=== PATIENT | female | born 1975 | race Two or more races ===

== ENCOUNTER 2025-04-18 11:41 | Emergency (ER) | payer SELFPAY ==
[~2025-04-18] VITALS: Ht 162.6 cm; Wt 84.0 kg
--- NOTE | 2025-04-18 12:03 | ED.PDOC ---
History of Present Illness HPI Comments 49 year old female with PMHx of Adrenal insufficiency presents to the ED via EMS with a chief complaint of abdominal pain onset today. Patient states she has Adrenal insufficiency, is with Be, is being followed by Human Resources Safety Manager. Spouse states patient has been seen at [facility] about 4 times for similar symptoms, has not been treated. Patient is currently experiencing abdominal pain, generalized weakness, shortness of breath, lightheadedness. Upon ED arrival BP was 166/94. Patient has been taking Steroids for the past 4 days, was late on her dose today. Denies chest pain, nausea, vomiting, diarrhea, numbness/tingling, fever, chills. No other symptoms or modifying factors present at this time. Chief Complaint: Abdominal Pain Time Seen by MD: 12:00 Reviewed Notes: Medications, Allergies Allergies: Coded Allergies: Cefuroxime (Verified Allergy, Unknown, 04/18/25) Ciprofloxacin (Verified Allergy, Unknown, 04/18/25) Hydrocortisone (Verified Allergy, Unknown, 04/18/25) Metronidazole (Verified Allergy, Unknown, 04/18/25) Miconazole (Verified Allergy, Unknown, 04/18/25) Promethazine (Verified Allergy, Unknown, 04/18/25) Sulfamethoxazole w/Trimethoprim (Verified Allergy, Unknown, 04/18/25) Information Source: Patient, Emergency Med Personnel, Spouse Mode of Arrival: EMS Severity: Moderate Timing: Hours Duration: Since onset Prehospital treatment: None Past Medical History Past Medical History (Other): Adrenal insufficiency Surgical History: Denies all surgeries BUSINESS TRANSFORMATION MANAGER History: No Pertinent BUSINESS TRANSFORMATION MANAGER History Family History Family History: Reviewed,noncontributory to illness, No family hx of Cancer, No family hx of DM, No family hx of Heart kye, No family hx of HTN, No family hx ofKidney kye, No family hx of Liver kye, No family hx of Lung kye, No family hx of Stroke Social History Smoker: Non-Smoker Alcohol: Denies ETOH Use Drugs: Denies Drug Use Lives In: Home Constitutional: reports: weakness; denies: chills, diaphoresis, fatigue, fever, malaise, sweats, others EENTM: denies: blurred vision, double vision, ear bleeding, ear discharge, ear drainage, ear pain, ear ringing, eye pain, eye redness, hearing loss, mouth pain, mouth swelling, nasal discharge, nose bleeding, nose congestion, nose pain, photophobia, tearing, throat pain, throat swelling, voice changes, others Respiratory: denies: cough, hemoptysis, orthopnea, SOB at rest, shortness of breath, SOB with excertion, stridor, wheezing, others Cardiovascular: denies: chest pain, dizzy spells, diaphoresis, Dyspnea on exertion, edema, irregular heart beat, left arm pain, lightheadedness, palpitations, PND, syncope, others Gastrointestinal: reports: abdominal pain; denies: abdomen distended, blood streaked bowels, constipated, diarrhea, dysphagia, difficulty swallowing, hemat emesis, melena, nausea, poor appetite, poor fluid intake, rectal bleeding, rectal pain, vomiting, others Genitourinary: denies: abnormal vagina bleeding, burning, dyspareunia, dysuria, flank pain, frequency, hematuria, incontinence, pain, , vagina discharge, urgency, others Neurological: reports: weakness; denies: dizziness, fainting, headache, left sided numbness, left sided weakness, numbness, paresthesia, pre-existing deficit, right sided numbness, right sided weakness, seizure, speech problems, tingling, tremors, others Musculoskeletal: denies: back pain, gout, joint pain, joint swelling, muscle pain, muscle stiffness, neck pain, others Integumetry: denies: bruises, change in color, change in hair/nails, dryness, laceration, lesions, lumps, rash, wounds, others Allergic/Immunocompromised: denies: Difficulty Healing, Frequent Infections, Hives, Itching, others Hematologic/Lymphatic: denies: anemia, blood clots, easy bleeding, easy bruising, swollen glands, others Endocrine: denies: excessive hunger, excessive sweating, excessive thirst, excessive urination, flushing, intolerance to cold, intolerance to heat, unexplained weight gain, unexplained weight loss, others Psychiatric: denies: anxiety, bipolar disorder, depression, hopeless, panic disorder, schizophrenia, sleepless, suicidal, others All Other Systems: Reviewed and Negative Physical Exam General Appearance: Moderate Distress, Normal HEENT: Normal ENT Inspection, Pharynx Normal, TMs Normal Neck: Full Range of Motion, Non-Tender, Normal, Normal Inspection Respiratory: Chest Non-Tender, Lungs Clear, No Accessory Muscle Use, No Respiratory Distress, Normal Breath Sounds Cardiovascular: No Edema, No JVD, No Murmur, No Gallop, Normal Peripheral Pulses, Regular Rate/Rhythm Breast Exam: Deferred Gastrointestinal: No Organomegaly, Non Tender, No Pulsatile Mass, Normal Bowel Sounds, Soft Genitalia: Deferred Pelvic: Deferred Rectal: Deferred Extremities: No calf tenderness, Normal capillary refill, Normal inspection, Normal range of motion, Non-tender, No pedal edema Musculoskeletal : Apperance: Normal Neurologic: Alert, director hospice operations II-XII nml as Tested, No Motor Deficits, Normal Affect, Normal Mood, No Sensory Deficits Cerebellar Function: NOT DONE Reflexes: NOT DONE Skin: Dry, Normal Color, Warm Peripheral Pulses: 3+ Radial (R), 3+ Radial (L) Lymphatic: No Adenopathy Was a procedure done? Was a procedure done?: No Differential Dx Considerations may include: Anemia Electrolyte imbalance X-Ray, Labs, Meds, VS Vital Signs Date Time Temp Pulse Resp B/P (MAP) Pulse Ox O2 Delivery O2 Flow Rate FiO2 04/18/25 13:15 98.8 88 20 146/82 (103) 98 98.8 04/18/25 11:41 97.7 96 20 166/94 97 97.7 Lab Test 04/18/25 12:28 04/18/25 12:00 Range/Units White Blood Count 8.5 4.4-10.8 10^3/uL Red Blood Count 5.46 H 4.0-5.20 10^6/uL Hemoglobin 15.7 12.2-16.2 g/dL Hematocrit 48.1 H 36.0-46.0 % Mean Corpuscular Volume 88.0 80.0-100.0 fL Mean Corpuscular Hemoglobin 28.6 28.0-32.0 pg Mean Corpuscular Hemoglobin Concent 32.5 32.0-36.0 g/dL Red Cell Distribution Width 14.9 H 11.8-14.3 % Platelet Count 317 140-450 10^3/uL Mean Platelet Volume 6.9 6.9-10.8 fL Neutrophils (%) (Auto) 64.5 37.0-80.0 % Lymphocytes (%) (Auto) 26.9 10.0-50.0 % Monocytes (%) (Auto) 6.8 0.0-12.0 % Eosinophils (%) (Auto) 1.3 0.0-7.0 % Basophils (%) (Auto) 0.5 0.0-2.0 % Neutrophils # (Auto) 5.5 1.6-8.6 10 ^3/uL Lymphocytes # (Auto) 2.3 0.4-5.4 10 ^3/uL Monocytes # (Auto) 0.6 0-1.3 10 ^3/uL Eosinophils # (Auto) 0.1 0-0.8 10 ^3/uL Basophils # (Auto) 0 0-0.2 10 ^3/uL Nucleated Red Blood Cells 0.0 % Sodium Level 141 136-145 mmol/L Potassium Level 3.3 L 3.5-5.1 mmol/L Chloride Level 101 98-107 mmol/L Carbon Dioxide Level 28 20-31 mmol/L Anion Gap 12 5-15 Blood Urea Nitrogen 11 9-23 mg/dL Creatinine 1.02 0.550-1.02 mg/dL Glomerular Filtration Rate Calc 68 >90 mL/min BUN/Creatinine Ratio 10.8 10.0-20.0 Serum Glucose 167 H 74-106 mg/dL Calcium Level 9.3 8.7-10.4 mg/dL Urine Color Colorless Yellow Urine Clarity Clear Clear Urine pH 6.5 5.0-9.0 Urine Specific [place] 1.009 1.001-1.035 Urine Protein Negative Negative Urine Ketones Negative Negative Urine Blood Negative Negative /uL Urine Nitrite Negative Negative Urine Bilirubin Negative Negative Urine Urobilinogen Normal Negative mg/dL Urine Leukocyte Esterase Negative Negative /uL Urine RBC <1 0 - 4 /hpf Urine Microscopic WBC < 1 0-5 /HPF Urine Squamous Epithelial Cells Few <5 /hpf Urine Bacteria Few H None Seen /hpf Urine Glucose 1+ H Normal mg/dL Current Medications Medications (Trade) Dose Ordered Sig/Lesly Route Start Time Stop Time Status Last Admin Sodium Chloride 1,000 ml @ 1,000 mls/hr Q1H ONCE IVB 04/18/25 12:15 04/18/25 13:14 DC 04/18/25 13:12 Patient alert. Complaining of generalized body aches. Vitals stable. Answering questions. Blood sugar elevated. Establish intravenous access. Was given fluids. WBC within normal limits. Transferred for higher level of care. Explained to the patient. Time of 1ST Reevaluation: 12:30 Reevaluation 1ST: Unchanged Patient Education/Counseling: Diagnosis, Treatment, Prognosis Family Education/Counseling: Diagnosis, Treatment, Prognosis SEPSIS Sepsis Screen Vital Signs Date Time Temp Pulse Resp B/P (MAP) Pulse Ox O2 Delivery O2 Flow Rate FiO2 04/18/25 13:15 98.8 88 20 146/82 (103) 98 98.8 04/18/25 11:41 97.7 96 20 166/94 97 97.7 Laboratory Tests Test 04/18/25 12:28 White Blood Count 8.5 10^3/uL (4.4-10.8) Medications Medications Dose Ordered Sig/Lesly Route Start Time Stop Time Status Last Admin Dose Admin Sodium Chloride 1,000 ml @ 1,000 mls/hr Q1H ONCE IVB 04/18/25 12:15 04/18/25 13:14 DC 04/18/25 13:12 Departure 1 Departure Time of Disposition: 13:57 Impression: Primary Impression: Adrenal insufficiency Disposition: 02 SHORT TERM HOSPITAL Admit to: Med Surg Condition: Guarded Critical Care Note Critical Care Time?: Yes (90 min-critical care time only) Stability Stability form required: No Heart Score Heart Score: Heart Score Response (Comments) Value History N/A 0 EKG N/A 0 Age N/A 0 Risk Factors N/A 0 Troponin N/A 0 Total 0 I personally scribed for JUAN M PATTEN MD ([email or web address]) on 04/18/25 at 12:03. Electronically submitted by Loly Ireland ([email or web address]). I personally scribed for JUAN M PATTEN MD ([email or web address]) on 04/18/25 at 12:16. Electronically submitted by Loly Ireland ([email or web address]). JUAN M PATTEN MD Apr 18, 2025 12:03
[2025-04-18] MEDS ORDERED: HYDROCORTISONE SOD SUCC 100 MG/2ML INJ VIAL IV ONE (12:15)
[2025-04-18] MEDS ORDERED: diphenhydrAMINE HCL 50 MG/1 ML VL IV ONE (12:15)
[2025-04-18 12:53] LABS: Hematocrit 48.1 % (36.0-46.0); Hemoglobin 15.7 g/dL (12.2-16.2); Mean Corpuscular Hemoglobin 28.6 pg (28.0-32.0); Mean Corpuscular Volume 88.0 fL (80.0-100.0); Nucleated Red Blood Cells % 0.0 %
[2025-04-18 12:57] LABS: Urine Protein, UAD Negative (Negative)
[2025-04-18 13:00] LABS: Chloride 101 mmol/L (98-107); Sodium 141 mmol/L (136-145)
[2025-04-18 13:01] LABS: Anion Gap 12 (5-15); Calcium 9.3 mg/dL (8.7-10.4); Carbon Dioxide 28 mmol/L (20-31)
[2025-04-18 13:03] LABS: Potassium 3.3 mmol/L (3.5-5.1)
[2025-04-18 13:06] LABS: BUN/Creatinine Ratio 10.8 (10.0-20.0); Blood Urea Nitrogen 11 mg/dL (9-23)
[2025-04-18 13:11] LABS: Glucose 167 mg/dL (74-106)
[2025-04-18] MEDS: SODIUM CHLORIDE 0.9% 1,000 ML IVB ONE (13:12)
[2025-04-18 13:15] VITALS: BP 146/82; PULSE 88; RESP 20; TEMP 98.8; O2SAT 98
[2025-04-18] MEDS ORDERED: POTASSIUM EFFERVESENT TAB 25 MEQ PO ONE (13:30)
== END 2025-04-18 13:18 | disposition left against medical advice (07) ==
LOC: ER 11:41 → EDBD 11:41 → ER 13:18
DX: E27.40 Unspecified adrenocortical insufficiency (principal); Z88.3 Allergy status to other anti-infective agents; Z88.2 Allergy status to sulfonamides; Z88.1 Allergy status to other antibiotic agents
CPT/HCPCS: 36415; 80048; 81001; 85025; 96360; 99283; J7030

== ENCOUNTER 2025-05-06 21:29 | Emergency (ER) | payer MEDICAID, OTHER ==
[~2025-05-06] VITALS: Ht 162.6 cm; Wt 81.8 kg
--- NOTE | 2025-05-06 21:51 | ED.PDOC ---
HPI Comments 49-year-old female presents to the ED via EMS for chief complaint of initial epig abdominal pain that radiates to her chest. The patient reports that abdominal pain comes in waves usually radiates to her whole chest that has been ongoing for awhile. Patient describes the chest pain more as a squeezing sensation. Additionally, patient complains of constipation and had 1 bowel movement today with minimal output. EMS gave 4 mg of Zofran but was unable to give nitroglycerin for pain relief due to patient's side adverse side in the past in which caused palpitations. EMS reports blood pressure 180/110 with a repeat at 198/117 prior to ER arrival. At this time, patient reports that pain is constant, try to breathe in practice relaxation techniques although pain does not seem to alleviate. Patient is on Cortef due to a history of adrenal insufficiency although does have some mild allergic reaction to it although she is is compliant with taking it daily. The patient took 325 mg of aspirin x2. But states she still has pain. Past medical history: Adrenal insufficiency, hypertension in which she takes small doses of blood pressure medication, diabetes Past surgical history: Appendectomy, tonsillectomy, right wrist, right elbow, right knee. Social history: Denies Allergies: Multiple, see allergy list above. bickle: cp/abd pain adrenal insufficiency normal, obese. HPI: Poor Historian. REVIEW OF SYSTEMS: CONSTITUTIONAL: Denies acute: fever, diaphoresis, chills, HEAD: Denies acute: headache, photophobia Eyes: Denies acute: Double vision, vision loss, eye pain, eye discharge. EARS: Denies acute: tinnitus, hearing loss, ear discharge, ear pain, THROAT: Denies acute: sore throat, swelling, difficulty swallowing , pain with swallowing, change in voice. NECK: Denies acute: neck pain, neck swelling, stiff neck. HEART: Denies acute : , palpitations, LUNGS: Denies acute: SOB, wheezing, cough, hemoptysis ABDOMEN: Denies acute: , Nausea, Vomiting, diarrhea, melena , hematemesis, hematochezia SKIN: Denies acute: rash, redness, lesions, itchiness. EXTREMITIES: Denies acute: calf pain, numbness, tingling, weakness, denies pain in extremity. Denies acute: Low back pain. Neuro: Denies acute: focal neurological deficit, motor or sensory focal neurological deficit, tremors, seizure like activity, confusion, dizziness, change in mental status, loss of bowel or bladder function, cauda equina like symptoms. : Denies acute: dysuria, hematuria, flank pain, increase in urinary frequency. PSYCH: Denies acute: hallucination, suicidal ideation, homicidal ideation. FEMALE: Denies acute: abnormal vaginal bleeding, foul odor, unusual discharge. PHYSICAL EXAM: General: -----Mod---acute distress, awake and alert. Head: normocephalic, atraumatic. No raccoon's eyes, no dominguez sign. Neck: supple, trachea is midline, no swelling. Throat: Normal phonation. Eyes:, no erythema, no purulent discharge, no proptosis, no icterus. Heart: regular rate, regular rhythm, no significant murmur appreciated. Lungs: no apparent respiratory distress, Able to speak in full sentences. No wheezing, no rhonchi, no crackles. No stridors Clear to auscultation bilaterally. Abdomen: epig tender to palpation, non distended, soft, no guarding, no rebound, + bowel sounds. Neuro: Awake, Alert, oriented to name, self, situation, follows commands GCS=15. Speech is normal. Skin: no petechia, no purpura, no cyanosis, non-pale, not jaundice. Lower extremities: --no - Pitting edema no deformity, no focal swelling, no calf TTP. Makes eye contact. moves all four extremities. Face: no apparent facial droop. ED COURSE: DISCLAIMER: This medical document was created using an electronic medical record system with voice recognition software and computerized dictation system. Although this document has been carefully reviewed, there might still be some phonetic and typographical errors. Occasional wrong-word or "sound-alike" substitutions may have occurred due to the inherent limitations of voice recognition software. These areas are purely typographical due to imperfections of the software programs and do not reflect any compromise in the patient's medical care. Please read the chart carefully and recognize, using context, where these substitutions have occurred. Time Seen by MD: 21:31 Reviewed Notes: Automotive Brake Specialist Notes, Medications, Allergies Allergies: Coded Allergies: Cefuroxime (Verified Allergy, Unknown, 04/18/25) Ciprofloxacin (Verified Allergy, Unknown, 04/18/25) Hydrochlorothiazide (Verified Allergy, Unknown, 05/06/25) Hydrocortisone (Verified Allergy, Unknown, 04/18/25) Metronidazole (Verified Allergy, Unknown, 04/18/25) Miconazole (Verified Allergy, Unknown, 04/18/25) Promethazine (Verified Allergy, Unknown, 04/18/25) Sulfamethoxazole w/Trimethoprim (Verified Allergy, Unknown, 04/18/25) Information Source: Patient, Emergency Med Personnel Mode of Arrival: EMS Severity: Moderate Timing: Days Duration: Since onset EKG EKG : Pulse Rate (adult): 99 Cardiac Rhythm: NSR Was a procedure done? Was a procedure done?: No CP Differential Dx Differential Diagnosis: Anxiety / Panic Attack, Electrolyte Disorder Differential Diagnosis: HTN Essential, HTN Accelerated, HTN Encephalopathy Differential Diagnosis: Angina, Chest Wall Pain, Cholelithiasis, Costochondritis, Other (Ddx include but not limitied to gastritis, musculoskeletal pain, radiculopathy, atypical chest pain, dissection, aneurysm, ACS, unstable angina, hiatal hernia, GERD, anxiety, costochondritis, PE, pneumothroax, neoplasm, cardiac ischemia, drug abuse, anemia.) X-Ray, Labs, Meds, VS Vital Signs Date Time Temp Pulse Resp B/P (MAP) Pulse Ox O2 Delivery O2 Flow Rate FiO2 05/07/25 06:24 98.1 68 18 146/82 (103) 99 98.1 05/07/25 04:00 70 05/07/25 02:44 98.1 78 18 137/82 (100) 97 98.1 05/07/25 02:20 98.1 78 18 135/81 (99) 97 98.1 05/07/25 00:31 79 05/06/25 22:52 94 05/06/25 22:33 78 20 97 Room Air* 0 21 05/06/25 22:33 98.1 86 18 154/96 (115) 98.1 05/06/25 21:51 99 05/06/25 21:50 97 28 160/101 100 05/06/25 21:34 99 Lab Test 05/07/25 02:28 05/07/25 00:37 05/06/25 22:30 05/06/25 21:58 Range/Units Urine Color Light-yellow Yellow Urine Clarity Clear Clear Urine pH 7.5 5.0-9.0 Urine Specific [place] 1.014 1.001-1.035 Urine Protein Negative Negative Urine Ketones Negative Negative Urine Blood Negative Negative /uL Urine Nitrite Negative Negative Urine Bilirubin Negative Negative Urine Urobilinogen Normal Negative mg/dL Urine Leukocyte Esterase Negative Negative /uL Urine RBC <1 0 - 4 /hpf Urine Microscopic WBC < 1 0-5 /HPF Urine Squamous Epithelial Cells Few <5 /hpf Urine Bacteria Few H None Seen /hpf Urine Glucose Normal Normal mg/dL Troponin I High Sensitivity < 3 L < 3 L </=34 ng/L POC Glucose 162 H 70-106 mg/dl Test 05/06/25 21:30 Range/Units White Blood Count 9.1 4.4-10.8 10^3/uL Red Blood Count 5.43 H 4.0-5.20 10^6/uL Hemoglobin 15.6 12.2-16.2 g/dL Hematocrit 47.6 H 36.0-46.0 % Mean Corpuscular Volume 87.7 80.0-100.0 fL Mean Corpuscular Hemoglobin 28.8 28.0-32.0 pg Mean Corpuscular Hemoglobin Concent 32.9 32.0-36.0 g/dL Red Cell Distribution Width 14.8 H 11.8-14.3 % Platelet Count 315 140-450 10^3/uL Mean Platelet Volume 7.1 6.9-10.8 fL Neutrophils (%) (Auto) 63.7 37.0-80.0 % Lymphocytes (%) (Auto) 29.0 10.0-50.0 % Monocytes (%) (Auto) 5.7 0.0-12.0 % Eosinophils (%) (Auto) 0.7 0.0-7.0 % Basophils (%) (Auto) 0.9 0.0-2.0 % Neutrophils # (Auto) 5.8 1.6-8.6 10 ^3/uL Lymphocytes # (Auto) 2.6 0.4-5.4 10 ^3/uL Monocytes # (Auto) 0.5 0-1.3 10 ^3/uL Eosinophils # (Auto) 0.1 0-0.8 10 ^3/uL Basophils # (Auto) 0.1 0-0.2 10 ^3/uL Nucleated Red Blood Cells 0.1 % Sodium Level 142 136-145 mmol/L Potassium Level 4.0 3.5-5.1 mmol/L Chloride Level 105 98-107 mmol/L Carbon Dioxide Level 25 20-31 mmol/L Anion Gap 12 5-15 Blood Urea Nitrogen 7 L 9-23 mg/dL Creatinine 0.77 0.550-1.02 mg/dL Glomerular Filtration Rate Calc 95 >90 mL/min BUN/Creatinine Ratio 9.1 L 10.0-20.0 Serum Glucose 114 H 74-106 mg/dL Lactic Acid Level 1.6 0.4-2.0 mmol/L Calcium Level 9.7 8.7-10.4 mg/dL Total Bilirubin 0.8 0.2-1.0 mg/dL Aspartate Amino Transferase (AST) 20 13-40 U/L Alanine Aminotransferase (ALT) 20 7-40 U/L Alkaline Phosphatase 86 46-116 U/L Troponin I High Sensitivity < 3 L </=34 ng/L B-Type Natriuretic Peptide 7.27 0-100 pg/mL Total Protein 7.3 5.7-8.2 g/dL Albumin 4.9 H 3.2-4.8 g/dL Lipase 44 12-53 U/L Time of 1ST Reevaluation: 21:44 Reevaluation 1ST: Unchanged Time of 2ND Reevaluation: 02:22 (The case was discussed with the [place] admitting team (HPI, physical exam, labs and diagnostic tests that were available at the time of disposition, ED course, treatment plan) on the phone. They agreed to transfer the patient to their service by ALS for further evaluation and treatment. Dr. Vasquez.--[phone]-. Authorization number ) Patient Education/Counseling: Diagnosis, Treatment Family Education/Counseling: Diagnosis, Treatment Comments MDM: patient presented with the above HPI.--cardiac----workup was initiated. patient was found with the above mentioned diagnosis. the following medications were ordered: please refer to order lists of meds and tests obtained by myself Dr. Garber. Patient ED course and VS have been stabilized. Patient has been reassessed in the ED and remained in a stable condition. RADIOLOGY: I have reviewed all the radiological reports ordered by myself that were available at the time of disposition. EKG: I have reviewed the initial EKG and interpreted it in the absence of cardiology formal read. Pertinent incidental findings were discussed with the patient and/or family. Patient/family voices understanding and is agreeable with plan. Patient has been observed in the ED adequate length of time to insure improvement/stability. Escalation of care considered: Consideration of escalation to observation or admission Patient was ADMITTED to the medicine team for further evaluation and treatment of their presentation. All the reports of any imaging studies that were ordered by myself were reviewed by myself. Departure 1 Departure Time of Disposition: 01:17 Impression: Primary Impression: Chest pain Additional Impression: Constipation Disposition: 09 ADMITTED INPATIENT Admit to: Tele Condition: Guarded Discharged With: Self Critical Care Note Critical Care Time?: No Heart Score Heart Score: Heart Score Response (Comments) Value History Moderate Suspicious 1 EKG Normal 0 Age 45-64 1 Risk Factors >3 or Hx ASHD 2 Troponin Normal limit 0 Total 4 I personally scribed for TAMERA GARBER DO ([email or web address]) on 05/06/25 at 21:51. Electronically submitted by Avelina Bustos ([facility]). TAMERA GARBER DO May 06, 2025 21:51
--- NOTE | 2025-05-06 21:56 | ECG ---
[facility] Test Date: 2025-05-06 Test Time: 21:34:39 Pat Name: OMERO ZARCO Department: [facility] ED Patient ID: [facility]-[id number] Room: Gender: F Child And Adolescent Psychiatrist: jose cruz : 1975 Requested By: TAMERA GARBER Order Number: [id number] Reading MD: Itz Bales Measurements Intervals [place] Rate: 99 P: 61 WA: 131 QRS: 63 QRSD: 81 T: 37 QT: 340 QTc: 437 Interpretive Statements Sinus rhythm Electronically Signed On 05-08-2025 15:26:54 PST by Itz Bales Please click the below link to view image of tracing.
[2025-05-06 22:00] LABS: Hematocrit 47.6 % (36.0-46.0); Hemoglobin 15.6 g/dL (12.2-16.2); Mean Corpuscular Hemoglobin 28.8 pg (28.0-32.0); Mean Corpuscular Volume 87.7 fL (80.0-100.0); Nucleated Red Blood Cells % 0.1 %
[2025-05-06 22:19] LABS: Alanine Aminotransferase 20 U/L (7-40); Alkaline Phosphatase 86 U/L (46-116); Anion Gap 12 (5-15); BUN/Creatinine Ratio 9.1 (10.0-20.0); Bilirubin, Total 0.8 mg/dL (0.2-1.0); Calcium 9.7 mg/dL (8.7-10.4); Carbon Dioxide 25 mmol/L (20-31); Chloride 105 mmol/L (98-107); Lipase 44 U/L (12-53); Potassium 4.0 mmol/L (3.5-5.1); Sodium 142 mmol/L (136-145); Total Protein 7.3 g/dL (5.7-8.2)
[2025-05-06 22:20] LABS: Albumin 4.9 g/dL (3.2-4.8); Blood Urea Nitrogen 7 mg/dL (9-23); Glucose 114 mg/dL (74-106)
[2025-05-06 22:33] VITALS: PULSE 78; RESP 20; O2SAT 97
--- NOTE | 2025-05-06 22:53 | ECG ---
[facility] Test Date: 2025-05-06 Test Time: 22:52:27 Pat Name: OMERO ZARCO Department: [facility] ED Patient ID: [id number] Room: Gender: F Pond Tender: jose cruz : 1975 Requested By: TAMERA GARBER Order Number: [id number] Reading MD: Itz Bales Measurements Intervals [place] Rate: 94 P: 21 GA: 121 QRS: 61 QRSD: 84 T: 56 QT: 350 QTc: 438 Interpretive Statements Sinus rhythm Electronically Signed On 05-08-2025 15:27:13 PST by Itz Bales Please click the below link to view image of tracing.
--- NOTE | 2025-05-06 23:11 | DVH ---
CHEST RADIOGRAPH INDICATION: cp TECHNIQUE: Single frontal view of the chest was obtained COMPARISON: None FINDINGS: Lungs and pleural spaces are clear. Cardiac silhouette and felix are within normal limits. Bones and soft tissues demonstrate no significant abnormality. IMPRESSION: No acute disease.
--- NOTE | 2025-05-06 23:41 | DVH ---
EXAM: CT CT AB PEL WO CON-NO ORAL OR IV History: abd pain Comparison Study: None TECHNIQUE: Multidetector spiral CT of the abdomen was performed from lung bases to pubic symphysis. Imaging was performed without IV contrast. Axial, coronal and sagittal multiplanar reformats were obtained from the axial data set by the technologist. Radiation Dose : 1. Abdomen/Pelvis: CTDIvol 12.24 mGy, DLP 689.55 mGy*cm. FINDINGS: Evaluation of solid organs is limited due to lack of intravenous contrast use. Lung Bases: No acute or significant lung base finding. Normal heart size. No pleural or pericardial effusion. Liver: The liver is normal in size. No focal lesions. Gallbladder and Biliary Tree: Unremarkable Spleen: Unremarkable Pancreas: The pancreas is grossly normal in appearance. Adrenal Glands: Unremarkable Kidneys: Kidneys are grossly normal without calculi or hydronephrosis. Bladder: Grossly unremarkable for degree of distention. Bowel: The stomach is grossly normal in appearance. Small bowel and colon are normal in caliber and distribution. The appendix is not visualized; however, no secondary findings of acute appendicitis identified. Fairly large volume of stool throughout the colon. Ascites: Absent Lymphadenopathy: No mesenteric, retroperitoneal or periportal lymphadenopathy. Abdominal Wall and Mesentery: Unremarkable. Vasculature: The visualized abdominal aorta is normal in size and caliber. Evaluation of abdominal and pelvic vessels is limited due to lack of intravenous contrast. Pelvic Organs: Unremarkable Musculoskeletal: No aggressive focal bony lesions, acute fractures or dislocation. IMPRESSION: Fairly large volume of stool throughout the colon. Otherwise no significant abnormality. Radiation optimization: All CT scans at this facility use at least one of these dose optimization techniques: automated exposure control mA and/or kV adjustment per patient size (includes targeted exams where dose is matched to clinical indication) or iterative reconstruction.
--- NOTE | 2025-05-07 00:33 | ECG ---
[facility] Test Date: 2025-05-07 Test Time: 00:31:42 Pat Name: OMERO ZARCO Department: [facility] ED Patient ID: [id number] Room: Gender: F [employer]: KETURAH : 1975 Requested By: TAMERA GARBER Order Number: [id number] Reading MD: Itz Bales Measurements Intervals [place] Rate: 79 P: 14 [place]: 131 QRS: 28 QRSD: 84 T: 53 QT: 367 QTc: 421 Interpretive Statements Sinus rhythm Electronically Signed On 05-08-2025 15:27:36 PST by Itz Bales Please click the below link to view image of tracing.
[2025-05-07] MEDS: LIDOCAINE VISCOUS 2% 15ML UD PO ONE (01:29)
[2025-05-07] MEDS: SUCRALFATE 1 GM TAB PO ONE (01:29)
[2025-05-07] MEDS: PANTOPRAZOLE 40 MG TAB PO ONE (01:29)
[2025-05-07 03:01] LABS: Urine Protein, UAD Negative (Negative)
[2025-05-07 06:24] VITALS: BP 146/82; PULSE 68; RESP 18; TEMP 98.1; O2SAT 99
== END 2025-05-07 01:57 | disposition short-term general hospital (02) ==
LOC: EDBD 21:29 → ER 21:29
DX: K59.00 Constipation, unspecified (principal); R07.89 Other chest pain; E11.9 Type 2 diabetes mellitus without complications; I10 Essential (primary) hypertension; Z90.49 Acquired absence of other specified parts of digestive tract; Z90.89 Acquired absence of other organs; Z88.3 Allergy status to other anti-infective agents; Z88.2 Allergy status to sulfonamides; Z88.1 Allergy status to other antibiotic agents
CPT/HCPCS: 36415; 71045; 74176; 80053; 81001; 82947; 82962; 83605; 83690; 83880; 84484; 85025; 93005